=== PATIENT | female | born 1985 | race Caucasian/White ===

== ENCOUNTER 2018-07-31 05:36 | Inpatient (IN) | payer OTHER ==
[2018-07-31] MEDS ORDERED: Ondansetron PF 4 MG/2 ML Vial IVP PRN ×3 (05:41→10:56)
[2018-07-31] MEDS ORDERED: Bicitra 30 ML UDCUP PO SCH (05:45)
[2018-07-31] MEDS ORDERED: CEFAZOLIN/Water 2 GM/20 ML SYRINGE SLOW IVP SCH (05:45)
[2018-07-31] MEDS: Lactated Ringer's 1,000 ML IV SCH ×2 (06:03→07:15)
[2018-07-31 06:11] VITALS: BMI 36.6
[2018-07-31] MEDS ORDERED: CEFAZOLIN 2 GM/50 ML-DEXTROSE 2 GM in Premix Bag 1 BAG IVPB SCH (06:15)
[2018-07-31 06:49] LABS: Hemoglobin 12.7 g/dL (12.0-16.0); Mean Corpuscular HGB CONC 32.9 g/dL (32.0-36.0); Mean Corpuscular Hemoglobin 28.3 pg (27.0-31.0); Mean Corpuscular Volume 86.1 fL (78.0-98.0); Mean Platelet Volume 10.1 fL (7.4-10.4); Platelet Count 116 thou/uL (130-400); White Blood Cell (WBC) Count 7.8 thou/uL (4.8-10.8)
[2018-07-31 07:05] LABS: Syphilis Antibody Nonreactive (Nonreactive); Syphilis Antibody Index 0.04 S/CO (<1.00 Non-Reactive)
[2018-07-31 07:17] LABS: HBSAg Index 0.16 S/CO (0-0.99); Hep B Surf Ag Non-Reactive S/CO (NonReactive)
[2018-07-31] MEDS ORDERED: Oxytocin 10 UNITS/ML VIAL ONE ×3 (07:19→08:26)
[2018-07-31] MEDS ORDERED: Morphine PF 1 MG/ML SYR ONE (07:19)
[2018-07-31] MEDS ORDERED: Ondansetron PF 4 MG/2 ML Vial ONE ×2 (07:19→16:16)
[2018-07-31] MEDS ORDERED: PHENYLEPHRINE-NS 100 MCG/ML 10 ML SYRINGE ONE ×2 (07:19→16:16)
[2018-07-31] MEDS ORDERED: Ketorolac Tromethamine 30 MG/ML VIAL ONE ×3 (07:19→16:16)
[2018-07-31] MEDS ORDERED: Bupivacaine 0.75% W/DEXTROSE 8.25% 2 ML AMP ONE (07:19)
[2018-07-31] MEDS ORDERED: Lidocaine 2% MPF 10 ML AMP (For Epidural Use) ONE (07:19)
[2018-07-31] MEDS ORDERED: Naloxone HCl 0.4 mg/ml Vial IV PRN (07:41)
[2018-07-31] MEDS ORDERED: Eucerin (Mineral Oil/Petrolatum,White) 30 gm Jar TOP PRN (07:41)
[2018-07-31] MEDS ORDERED: Naloxone HCl 0.4 mg/ml Vial IVP PRN ×2 (07:41)
[2018-07-31] MEDS ORDERED: Promethazine HCl 25 MG/ML VIAL SLOW IVP PRN (07:41)
[2018-07-31] MEDS ORDERED: Promethazine HCl 25 MG/ML VIAL IM PRN ×2 (07:41)
[2018-07-31] MEDS ORDERED: diphenhydrAMINE 50 MG/ML VIAL IVP PRN (07:41)
[2018-07-31] MEDS ORDERED: Ondansetron HCl/PF 4 MG/2 ML Vial IVP PRN (07:41)
[2018-07-31] MEDS ORDERED: Promethazine HCl 25 MG SUPP PR PRN (07:41)
[2018-07-31] MEDS ORDERED: Communication Order-Pharmacy FS SCH (07:45)
[2018-07-31 10:35] LABS: HIV (1/2) Antibody/Antigen Non-Reactive (NonReactive); HIV 1/2 INDEX 0.26 S/CO (<1.00)
[2018-07-31] MEDS: Ketorolac Tromethamine 30 MG/ML VIAL IVP PRN ×2 (10:49→22:01)
[2018-07-31] MEDS ORDERED: Lanolin Ointment 7 GM TUBE TOP PRN (10:56)
[2018-07-31] MEDS ORDERED: diphenhydrAMINE 25 MG CAP PO PRN (10:56)
[2018-07-31] MEDS ORDERED: NS / Oxytocin 40 units/1000ml 1,000 ML IV SCH (10:56)
[2018-07-31] MEDS ORDERED: Bisacodyl 10 MG SUPP PR PRN (10:56)
[2018-07-31] MEDS ORDERED: Simethicone Chewable 80 MG TAB PO PRN (10:56)
[2018-07-31] MEDS: Prenatal Vitamin 1 TAB PO SCH (11:55)
[2018-07-31] MEDS: Docusate Calcium (SURFAK) 240 MG CAP PO SCH ×2 (11:55→23:00)
[2018-07-31] MEDS: Ferrous Sulfate 325 MG TAB PO SCH ×2 (11:55→23:00)
[2018-07-31] MEDS ORDERED: Acetaminophen 1,000 MG in Premix Bag 1 BAG IVPB PRN (15:03)
[2018-07-31] MEDS ORDERED: Meperidine HCl/PF 25 MG/ML VIAL IM PRN (19:45)
[2018-08-01] MEDS: Ketorolac Tromethamine 30 MG/ML VIAL IVP PRN (04:39)
[2018-08-01 06:18] LABS: Hemoglobin 9.2 g/dL (12.0-16.0); Mean Corpuscular Hemoglobin 28.8 pg (27.0-31.0); Platelet Count 102 thou/uL (130-400); Red Blood Cell (RBC) Count 3.21 mill/uL (4.20-5.40); White Blood Cell (WBC) Count 8.9 thou/uL (4.8-10.8)
[2018-08-01] MEDS: Docusate Calcium (SURFAK) 240 MG CAP PO SCH ×2 (08:07→21:21)
[2018-08-01] MEDS: Prenatal Vitamin 1 TAB PO SCH (08:07)
[2018-08-01] MEDS: HYDROcodone/Acetaminophen 5/325 mg Tablet PO PRN ×4 (08:07→23:06)
[2018-08-01] MEDS: Ferrous Sulfate 325 MG TAB PO SCH ×2 (08:07→21:21)
[2018-08-01] MEDS: Ibuprofen 800 MG TAB PO SCH ×2 (13:13→21:21)
[2018-08-02] MEDS: HYDROcodone/Acetaminophen 5/325 mg Tablet PO PRN ×3 (05:03→16:07)
[2018-08-02] MEDS: Ibuprofen 800 MG TAB PO SCH ×2 (05:03→13:32)
[2018-08-02 07:51] VITALS: BP 115/54; TEMP 98.1
[2018-08-02] MEDS: Prenatal Vitamin 1 TAB PO SCH (10:01)
[2018-08-02] MEDS: Ferrous Sulfate 325 MG TAB PO SCH (10:01)
[2018-08-02] MEDS: Docusate Calcium (SURFAK) 240 MG CAP PO SCH (10:01)
== END 2018-08-02 16:50 | disposition home or self-care (01) | DRG 788 ==
LOC: L&D 05:36 → 3SW 11:37
PROVIDERS: ADMIT Family Medicine; ATTEND Family Medicine
PROC: 10D00Z1 Extraction of Products of Conception, Low, Open Approach (ICD-10-PCS; principal; 2018-07-31)
DX: O34.211 Maternal care for low transverse scar from previous cesarean delivery (principal); Z3A.39 39 weeks gestation of pregnancy; Z37.0 Single live birth
CPT/HCPCS: 36415; 51702; 85027; 86780; 86850; 86900; 86901; 87340; 87389; J0131; J1885; J2001; J2274; J2405; J2590; J3490

== ENCOUNTER 2022-11-06 11:24 | Observation (INO) | payer SELFPAY ==
[2022-11-06] MEDS ORDERED: Ondansetron PF 4 MG/2 ML Vial IVP PRN (13:45)
[2022-11-06] MEDS ORDERED: Morphine 4 MG/ML VIAL SLOW IVP PRN (13:47)
[2022-11-06] MEDS ORDERED: fentaNYL PF 100 MCG/2 ML SYRINGE ONE (14:41)
[2022-11-06] MEDS ORDERED: Iopamidol 15 ML ONE (15:07)
[2022-11-06] MEDS ORDERED: Dexamethasone 20 MG/5 ML VIAL ONE (15:21)
[2022-11-06] MEDS ORDERED: Lidocaine 1% PF 5 ML VIAL ONE (15:21)
[2022-11-06] MEDS ORDERED: Succinylcholine Chloride 100 MG/5 ML SYRINGE FS ONE (15:21)
[2022-11-06] MEDS ORDERED: Ondansetron PF 4 MG/2 ML Vial ONE (15:21)
[2022-11-06] MEDS ORDERED: PROPOFOL 200 MG/20 ML VIAL ONE (15:21)
[2022-11-06 15:35] LABS: Lactic Acid 1.6 mmol/L (0.5-2.2)
[2022-11-06] MEDS: Ketorolac Tromethamine 30 MG/ML VIAL IVP PRN ×2 (16:44→22:16)
[2022-11-06] MEDS: Sodium Chloride 0.9% 1,000 ML IV SCH (17:54)
[2022-11-06] MEDS ORDERED: FLU VACC QS2022-23(6MOS UP)/PF 60 MCG/0.5 ML SYRINGE IM ONE (18:00)
[2022-11-07] MEDS: Ketorolac Tromethamine 30 MG/ML VIAL IVP PRN (03:45)
[2022-11-07] MEDS: Sodium Chloride 0.9% 1,000 ML IV SCH ×2 (04:20→11:46)
[2022-11-07 06:52] LABS: #Lymphocytes 1.8 thou/uL (1.20-3.40); #Monocytes 0.8 thou/uL (0.11-0.59); #Neutrophils 12.2 thou/uL (1.40-6.50); %Basophils 0.1 % (0.0-1.0); %Eosinophils 0.1 % (0.0-10.0); %Lymphocytes 12.2 % (21.0-51.0); %Monocytes 5.4 % (0.0-10.0); %Neutrophils 82.2 % (42.0-75.0); Hemoglobin 14.8 g/dL (12.0-16.0); Mean Corpuscular HGB CONC 35.3 g/dL (32.0-36.0); Mean Corpuscular Hemoglobin 31.8 pg (27.0-31.0); Mean Corpuscular Volume 90.1 fl (78.0-98.0); Mean Platelet Volume 10.1 fL (7.4-10.4); Platelet Count 166 10x3/uL (130-400); RBC Distribution Width 11.8 % (11.5-14.5); Red Blood Cell (RBC) Count 4.66 mill/uL (4.20-5.40); White Blood Cell (WBC) Count 14.8 10x3/uL (4.8-10.8)
[2022-11-07 07:21] LABS: Anion Gap 14 mmol/L (10-20); BUN (Urea Nitrogen) 9 mg/dL (7.0-18.7); Calc. Creatinine Clearance 147 mL/min (70-130); Carbon Dioxide 23 mmol/L (22-29); Chloride 107 mmol/L (98-107); Estimated GFR 114; Glucose 126 mg/dL (70-105); Potassium 4.7 mmol/L (3.5-5.1); Sodium 139 mmol/L (136-145)
[2022-11-07] MEDS ORDERED: cefTRIAXone\\ROCEPHIN 1 GM in Sodium Chloride 0.9% 100 ML IVPB SCH (09:00)
[2022-11-07 12:12] VITALS: BP 156/89; TEMP 97.7
== END 2022-11-07 12:17 | disposition home or self-care (01) ==
LOC: T4-B 12:06
PROVIDERS: ADMIT Internal Medicine; ATTEND Internal Medicine
PROC: 0T768DZ Dilation of Right Ureter with Intraluminal Device, Via Natural or Artificial Opening Endoscopic (ICD-10-PCS; principal; 2022-11-06)
DX: N13.2 Hydronephrosis with renal and ureteral calculous obstruction (principal); N94.89 Other specified conditions associated with female genital organs and menstrual cycle
CPT/HCPCS: 36415; 74420; 80048; 83605; 85025; 96374; 96375; G0378; J0696; J1100; J1885; J2270; J2405; J2704; J3490; J7050; Q9967

== ENCOUNTER 2022-11-09 08:44 | Outpatient (CLI) | payer SELFPAY | END 2022-11-09 08:45 | disposition home or self-care (01) | LOC: LABBT 08:44 | PROVIDERS: ATTEND Urology | DX: Z01.812 Encounter for preprocedural laboratory examination (principal); N20.0 Calculus of kidney; N21.1 Calculus in urethra | CPT/HCPCS: 87086 ==

== ENCOUNTER 2022-11-14 10:41 | Day surgery (SDC) | payer SELFPAY ==
[2022-11-10 15:43] VITALS: BMI 32.5
[2022-11-14] MEDS ORDERED: Ondansetron PF 4 MG/2 ML Vial ONE (11:56)
[2022-11-14] MEDS ORDERED: PROPOFOL 200 MG/20 ML VIAL ONE (11:56)
[2022-11-14] MEDS ORDERED: Lidocaine 1% PF 5 ML VIAL ONE (11:56)
[2022-11-14] MEDS ORDERED: Rocuronium Bromide 10 MG/ML (10ML VIAL) ONE (11:56)
[2022-11-14] MEDS ORDERED: Iopamidol 30 ML ONE (12:18)
[2022-11-14] MEDS ORDERED: Fentanyl 100 MCG/2 ML VIAL ONE (12:26)
[2022-11-14] MEDS ORDERED: SUGAMMADEX SODIUM 200 MG/2 ML VIAL ONE (12:26)
[2022-11-14] MEDS ORDERED: Midazolam HCl 2 mg/2 ml Vial ONE (12:28)
[2022-11-14] MEDS ORDERED: CEFAZOLIN 2 GM VIAL ONE (12:35)
[2022-11-14] MEDS ORDERED: Sodium Chloride 0.9% 100 ML ONE (12:35)
== END 2022-11-14 17:40 | disposition home or self-care (01) ==
LOC: SDC 10:41
PROVIDERS: ATTEND Urology
PROC: 0T768DZ Dilation of Right Ureter with Intraluminal Device, Via Natural or Artificial Opening Endoscopic (ICD-10-PCS; principal; 2022-11-14)
PROC: 0TC08ZZ Extirpation of Matter from Right Kidney, Via Natural or Artificial Opening Endoscopic (ICD-10-PCS; principal; 2022-11-14)
DX: N20.0 Calculus of kidney (principal); Z79.2 Long term (current) use of antibiotics
CPT/HCPCS: 74420; 82365; 88300; C1747; C1769; C2617; J2250; J2405; J2704; J3010; J3490; Q9967